=== PATIENT | female | born 2000 | race Caucasian/White ===

== ENCOUNTER 2021-02-05 15:09 | Emergency (ER) | payer OTHER ==
[~2021-02-05] VITALS: Ht 167.6 cm; Wt 113.4 kg
[2021-02-05 15:19] VITALS: BP_SYST 131
[2021-02-05 16:08] LABS: BASOPHILS # (AUTO) 0.1 K/uL (0.0-0.2); BASOPHILS % (AUTO) 0.5 % (0.0-2.0); EOSINOPHILS # (AUTO) 0.1 K/uL (0.0-0.4); EOSINOPHILS % (AUTO) 1.1 % (0.0-4.0); HEMATOCRIT 40.4 % (36-48); HEMOGLOBIN 13.4 g/dL (12.0-16.0); LYMPHOCYTES # (AUTO) 3.5 K/uL (1.0-5.5); LYMPHOCYTES % (AUTO) 29.9 % (20.5-51.5); MEAN CORPUSCULAR HEMOGLOBIN 26 pg (27-31); MEAN CORPUSCULAR HGB CONC 33 % (32-36); MEAN CORPUSCULAR VOLUME 77 fL (79.0-98.0); MONOCYTES # (AUTO) 0.9 K/uL (0.0-1.0); NEUTROPHILS # (AUTO) 7.1 K/uL (1.8-7.7); NEUTROPHILS % (AUTO) 60.5 % (40.0-70.0); PLATELET COUNT (AUTO) 276 K/uL (130-430); RED BLOOD CELL COUNT(AUTO) 5.22 MIL/uL (4.2-6.2); RED CELL DISTRIBUTION WIDTH 13.2 % (9.0-15.0); WHITE BLOOD COUNT (AUTO) 11.8 K/uL (4.8-10.8)
[2021-02-05 16:28] LABS: INR 0.9 (0.8-1.2); PROTHROMBIN TIME 9.9 SECS (9.5-12.5)
[2021-02-05 16:30] LABS: CREATININE 0.81 mg/dL (0.55-1.30)
[2021-02-05 16:36] LABS: ALBUMIN 3.8 g/dL (3.4-4.8); TOTAL BILIRUBIN 0.8 mg/dL (0.0-1.0)
[2021-02-05 17:03] LABS: BILIRUBIN,URINE NEGATIVE (NEGATIVE); BLOOD, URINE NEGATIVE (NEGATIVE); COLOR,URINE YELLOW (YELLOW); GLUCOSE,URINE NEGATIVE (NEGATIVE); KETONES,URINE NEGATIVE (NEGATIVE); LEUKOCYTE ESTERASE ,URINE NEGATIVE (NEGATIVE); NITRITE, URINE NEGATIVE (NEGATIVE); PROTEIN URINE NEGATIVE (NEGATIVE); UROBILINOGEN,URINE 0.2 (0.2-1.0)
[2021-02-05 17:53] LABS: CLARITY/URINE SLIGHTLY HAZY (CLEAR)
[2021-02-05] MEDS ORDERED: IBUP-1969 PO (18:39)
[2021-02-05 19:04] VITALS: BP_SYST 131
== END 2021-02-05 19:03 | disposition home or self-care (01) ==
LOC: SED 15:09
DX: R10.31 Right lower quadrant pain (principal); Z79.899 Other long term (current) drug therapy
CPT/HCPCS: 36415; 76376; 80053; 81003; 81025; 83690; 85025; 85610-TC; 85730-TC; 99284

== ENCOUNTER 2021-03-23 20:42 | Emergency (ER) | payer OTHER ==
[~2021-03-23] VITALS: Ht 167.6 cm; Wt 122.5 kg
[~2021-03-23 20:42] MED LIST: IBUP-1969 PO
[2021-03-23 21:31] VITALS: BP_SYST 125
--- NOTE | 2021-03-23 21:31 | NUR ---
PT TRIAGED AND PLACED IN WAITING ROOM. VSS. NO VISUAL DISTRESS NOTED AT THIS TIME.
--- NOTE | 2021-03-23 21:35 | NUR ---
Patient triaged and placed in waiting room. VSS and patient appears in no acute distress at this time. Accompanied by self, awaiting available bed, and MD notified of need for MSE.
--- NOTE | 2021-03-23 21:39 | NUR ---
DR. SOLARES TO EVALUATE PT IN TRIAGE ROOM.
--- NOTE | 2021-03-23 23:00 | NUR ---
[facility] States heard a "pop" s/p pulling out hand gloves for dishwashing. RIGHT FINGER, 5TH DIGIT. VSS. CURRENTLY STATING 5/10 ON THE PAIN SCALE.
[2021-03-23 23:57] VITALS: BP_SYST 125
--- NOTE | 2021-03-23 23:57 | NUR ---
Patient given written and verbal discharge instructions and verbalizes understanding. DR.FERNANDEZ YARITZA LAFLEUR discussed with patient the results and treatment provided. Patient in stable condition. ID arm band removed. Patient educated on pain management and to follow up with PMD. Pain Scale 0/10. Opportunity for questions provided and answered. Medication side effect fact sheet provided.
== END 2021-03-23 23:57 | disposition home or self-care (01) ==
LOC: SED 20:42
DX: M79.644 Pain in right finger(s) (principal); Z79.899 Other long term (current) drug therapy
CPT/HCPCS: 73140-TC; 99283